=== PATIENT | female | born 1995 | race Caucasian/White ===

== ENCOUNTER → 2021-05-29 09:40 | Outpatient (CLI) | payer OTHER, MEDICAID, SELFPAY ==
--- NOTE | 2021-05-29 09:43 | DI.US.S_ITS ---
PROCEDURE: US OB <= 14 WEEKS FETUS INDICATIONS: INITIAL VIABILITY AND DATING OUTSIDE/PRIOR DATING DATA: Last menstrual period (LMP): Unknown. LMP-based estimated date of delivery (ELIAS): Not applicable. First dating scan (date and location): 05/29/2021. Estimated date of delivery (ELIAS) from first dating scan: 01/12/2022. TECHNIQUE: Real-time scanning was performed of the fetus and maternal pelvic organs, with image documentation. Endovaginal scanning was also performed to better visualize the fetus and maternal ovaries. COMPARISON: None. FINDINGS: Embryo: At the uterine fundus there is a gestational sac containing a fetus with a crown-rump length of 3.4 centimeters. This corresponds to a gestational age of 10 weeks 2 days. heart rate detected at 171 beats per minute. Measurement variability in dating: +/- 4 weeks by LMP, +/- 7 days by mean sac diameter (use before 6 weeks gestation if crown-rump length not able to be measured), +/- 5 days by crown-rump length (up to 8 weeks 6 days gestation), +/- 7 days by crown-rump length (up to 13 weeks 6 days gestation). Maternal organs: Left ovary not identified. Right ovary unremarkable. IMPRESSION: Single live intrauterine gestation with estimated ultrasound age of 10 weeks 2 days. Gestation is too early for accurate anatomic survey. Repeat study recommended when appropriate. Dictated by: Gabo Padilla M.D. on 05/29/2021 at 10:41 Approved by: Gabo Padilla M.D. on 05/29/2021 at 10:43
== END ==
PROVIDERS: PCP Family Medicine; Referring Provider Family Medicine; Visit Provider Family Medicine
DX: Z34.81 Encounter for supervision of other normal pregnancy, first trimester (principal); Z3A.10 10 weeks gestation of pregnancy
CPT/HCPCS: 76801; 76817